=== PATIENT | female | born 1970 | race African-American/Black ===

== ENCOUNTER → 2016-10-04 | Outpatient (CLI) | payer BC ==
--- NOTE | ~2016-10-04 | CR58 ---
[facility]. [facility] A Service of [facility] & [facility] RADIOLOGY TEXT RESULTS PATIENT: MARYJO GUILLEN LOCATION: [facility] : 72 UNIT #: [id number] AGE: [address]: CHAO EDGAR APRN SEX: F ORDER DR: [id number] [address] [address] [id number] O MR#: [id number] Acc #: [id number] NAME: MARYJO GUILLEN : 1970 SEX: F STUDY DATE/TIME: 10/04/2016 14:09 UNIT: [facility] ROOM: STUDY DESCRIPTION: CR Cervical Spine 2 or 3 Views Attending Physician: Chao Edgar A.P.R.N. Referring Physician: Chao Edgar A.P.R.N. Ordering Physician: Chao Edgar A.P.R.N. Primary Care Physician: Ludy Anderson M.D. MEDICAL IMAGING REPORT This report is preliminary unless electronic signature is present. EXAM Cervical spine 5 views, 10/04/2016 HISTORY Neck pain for 2 years postop cervical spine fusion 08/15/2016. Stenosis of cervical spine with myelopathy. FINDINGS 4 views of the cervical spine demonstrate no fracture. There is anterior fusion with surgical plate and screws extending from C4 through C6. The surgical hardware is intact. There is straightening of the cervical spine with loss of the normal lordotic curve. There is mild disc space narrowing at C6-7. There is no retropharyngeal soft tissue swelling. Dictated by... Jay Martinez M.D. THIS IS AN ELECTRONICALLY VERIFIED REPORT Jay Martinez M.D. at 10/05/2016 8:08 AM DAMON/[email or web address] TD: 10/04/2016 21:52 JOB #: [id number] MEDICAL IMAGING REPORT
== END | disposition home or self-care (01) ==
LOC: SRAD 14:02
DX: M47.12 Other spondylosis with myelopathy, cervical region (principal)
CPT/HCPCS: 72040